=== PATIENT | male | born 1955 | race Caucasian/White ===

== ENCOUNTER 2016-07-14 22:09 | Observation (INO) | payer BC ==
[~2016-07-14] VITALS: Ht 182.9 cm; Wt 64.6 kg
[~2016-07-14 22:09] MED LIST: ACULAR0.5 % OS; CEPHALEXIN500 MG PO; CHILD ASA81 MG PO; DILTIAZEM90 M1 PO; GENTASOL0.3 % OS; LOSARTAN POT50 MG PO; PLAVIX75 MG PO; PRAVACHOL40 MG PO; ZITHROMAX Z-PAK1 TAB PO
--- NOTE | 2016-07-14 22:24 | NUR ---
PATIENT AMBULATORY TO ROOM 15. UNDRESSED INTO A GOWN. PLACED ON MONITOR. AWAITING MD MILLER.
--- NOTE | 2016-07-14 22:39 | NUR ---
PATIENT AMBULATORY TO BATHROOM IN ORDER TO COLLECT URINE SAMPLE.
--- NOTE | 2016-07-14 23:07 | NUR ---
PATIENT MEDICATED FOR ELEVATED BLOOD PRESSURE. WILL MONITOR FOR EFFECT.
[2016-07-14 23:08] LABS: HEMATOCRIT 41.3 % (39.0-50.0); HEMOGLOBIN 14.9 g/dl (14.0-18.0); IMMATURE GRANULOCYTES 0.5 % (0.0-1.0); MEAN CELL VOLUME 94.7 fL CALC (80.0-100.0); MEAN CORPUSCULAR HGB 34.2 pG CALC (26.0-32.0); MEAN CORPUSCULAR HGB CONC 36.1 g/L CALC (32.0-36.0); NEUT# 7.86 thou/uL (1.82-7.42); RED BLOOD COUNT 4.36 mill/uL (4.70-6.10); RED CELL DISTRI WIDTH 11.5 % (11.5-15.5)
[2016-07-14 23:10] LABS: URINE BILIRUBIN - DIPSTICK NEGATIVE (NEGATIVE); URINE BLOOD DIPSTICK NEGATIVE (NEGATIVE); URINE CLARITY CLEAR; URINE COLOR YELLOW; URINE GLUCOSE - DIPSTICK NEGATIVE (NEGATIVE); URINE KETONE NEGATIVE (NEGATIVE); URINE LEUK ESTERASE NEGATIVE (NEGATIVE); URINE NITRITE - DIPSTICK NEGATIVE (Negative); URINE PROTEIN - DIPSTICK NEGATIVE (NEG-TRACE); URINE SPECIFIC GRAVITY <=1.005; URINE UROBILINOGEN - DIPSTICK 0.2 E.U./dL (0.2)
[2016-07-14 23:15] LABS: PROTHROMBIN TIME 10.9 SECONDS (9.0-12.5)
[2016-07-14 23:16] LABS: ALBUMIN 5.2 g/dL (3.2-5.0); ALKALINE PHOSPHATASE 71 u/l (38-126); ANION GAP 16 (6-22 (CALC)); BILIRUBIN, TOTAL 1.1 mg/dL (0.0-1.4); BUN 9 mg/dL (8-23); BUN/CREATININE RATIO 13 (12-20 (CALC)); CALCIUM 9.7 mg/dL (8.4-10.2); CARBON DIOXIDE 25 mmol/l (22-30); CHLORIDE 81 mmol/l (95-108); CREATININE 0.7 mg/dL (0.7-1.3); GFR > 60 ML/MIN (>=60 (CALC)); GFR FOR AFR.AMER. > 60 ML/MIN (>=60 (CALC)); GLUCOSE 98 mg/dL (82-115); POTASSIUM 4.8 mmol/l (3.5-5.1); SGOT/AST 47 u/l (19-48); SGPT/ALT 30 u/l (11-66); TOTAL PROTEIN 8.8 g/dL (6.3-8.2)
[2016-07-14 23:27] LABS: MYOGLOBIN 64 ng/mL (0 - 121)
[2016-07-14 23:30] LABS: SODIUM 117 mmol/l (137-146)
--- NOTE | 2016-07-14 23:41 | NUR ---
PATIENT RETURNS TO DEPARTMENT. BP IMPROVED. PATIENT TO BE ADMITTED FOR [facility]. PATIENT AND SPOUSE AWARE OF PLAN OF CARE. GIVEN WARM BLANKET.
--- NOTE | 2016-07-14 23:55 | NUR ---
REPORT ATTEMPTED. NURSE TO CALL BACK.
[2016-07-15 00:07] LABS: BARBITURATES NEGATIVE (NEGATIVE); COCAINE NEGATIVE (NEGATIVE); METHADONE NEGATIVE (NEGATIVE); OXCYCODONE NEGATIVE (NEGATIVE); TETRAHYDROCANNABIONOL NEGATIVE (NEGATIVE); TRICYLIC ANTIDEPRESSANTS NEGATIVE (NEGATIVE)
--- NOTE | 2016-07-15 00:07 | NUR ---
REPORT GIVEN TO JOSE ANGEL. PATIENT READIED FOR TRANSPORT TO FLOOR.
[2016-07-15 00:15] VITALS: BP 143/77
--- NOTE | 2016-07-15 00:15 | NUR ---
PATIENT ARRIVED TO FLOOR IN STABLE CONDITION VIA WHEELCHAIR ACCOMPANIED BY JONNIE JONES. PATIENT SETTLED TO BED AND ORIENT TO ROOM, CALL SYSTEM, BED FUNCTION; BED IN LOW POSITION, AND CALL LIGHT IN REACH.
[2016-07-15 00:19] LABS: ETHYL ALCOHOL < 10 mg/dl (0-30)
[2016-07-15 03:30] VITALS: BP 90/58
--- NOTE | 2016-07-15 04:00 | NUR ---
PATIENT RESTING QUIETLY WITH EYES CLOSED AND APPEARS NOT TO BE IN ANY DISTRESS.
[2016-07-15 06:58] LABS: ANION GAP 11 (6-22 (CALC)); BUN 7 mg/dL (8-23); BUN/CREATININE RATIO 10 (12-20 (CALC)); CARBON DIOXIDE 25 mmol/l (22-30); CHLORIDE 90 mmol/l (95-108); CREATININE 0.7 mg/dL (0.7-1.3); GFR > 60 ML/MIN (>=60 (CALC)); GFR FOR AFR.AMER. > 60 ML/MIN (>=60 (CALC)); GLUCOSE 88 mg/dL (82-115); MAGNESIUM 1.8 mg/dL (1.6-2.3); POTASSIUM 3.7 mmol/l (3.5-5.1); SODIUM 122 mmol/l (137-146)
[2016-07-15 08:10] VITALS: BP 147/79
--- NOTE | 2016-07-15 08:10 | NUR ---
RECEIVED PT IN HIGH FOWLERS POSITION,ALERT,BREATH SOUNDS ARE CLEAR,BILATERALLY, NO C/O PAIN VOICED. IV SITE IS FREE FROM REDNESS OR EDEMA. TELE MONITOR IN PLACE. CONTINUE TO OSBERVE AND MONITOR.
[2016-07-15 11:48] VITALS: BP 117/69
--- NOTE | 2016-07-15 12:15 | NUR ---
PT HAS BEEN RELAXING IN BED WITH NO DISTRESS NOTED. IV SITE IS FREE FROM REDNESS OR EDEMA.
--- NOTE | 2016-07-15 15:40 | NUR ---
IV SITE DISCONTINEUD CATHETER INTACT. NO REDNESS OR EDEMA. DISCHARGE INSTRUCTIONS VERBALIZED UNDERSTANDING
--- NOTE | 2016-07-15 16:00 | NUR ---
PT TRANSPORTED TO VEHICLE WITH SPOUSE., NO DISTRESS NOTED. IV SITE WAS DISCONTINUED, TELE MONITOR DISCONTINUED.
== END 2016-07-15 16:00 | disposition home or self-care (01) | DRG 305 ==
LOC: ENPENDDIS → ED 22:09 → ED-I 23:33 → ED 23:42 → MS2 23:43
PROVIDERS: Emergency Medicine; ADMIT Internal Medicine; ATTEND Internal Medicine
DX: I16.0 Hypertensive urgency (principal); E87.1 Hypo-osmolality and hyponatremia; I10 Essential (primary) hypertension; F41.0 Panic disorder [episodic paroxysmal anxiety]; I25.10 Atherosclerotic heart disease of native coronary artery without angina pectoris; E78.5 Hyperlipidemia, unspecified; F10.10 Alcohol abuse, uncomplicated; F17.210 Nicotine dependence, cigarettes, uncomplicated; Z86.73 Personal history of transient ischemic attack (TIA), and cerebral infarction without residual deficits; Z95.5 Presence of coronary angioplasty implant and graft
CPT/HCPCS: G0378

== ENCOUNTER 2016-07-24 17:30 | Emergency (ER) | payer BC ==
[2016-07-24] MEDS ORDERED: MOTRIN400 MG PO (20:02)
== END 2016-07-24 17:45 | disposition left against medical advice (07) | DRG 951 ==
LOC: ED 17:30 → LWOBS 17:45
DX: Z91.19 Patient's noncompliance with other medical treatment and regimen (principal)

== ENCOUNTER 2016-07-24 18:28 | Emergency (ER) | payer OTHER, BC ==
[~2016-07-24] VITALS: Ht 182.9 cm; Wt 65.5 kg
[2016-07-24] MEDS ORDERED: MOTRIN400 MG PO (20:02)
[2016-07-24 20:10] VITALS: BP 181/98
== END 2016-07-24 20:10 | disposition home or self-care (01) | DRG 552 ==
LOC: ED 18:28
DX: S16.1XXA Strain of muscle, fascia and tendon at neck level, initial encounter (principal); I10 Essential (primary) hypertension; I25.10 Atherosclerotic heart disease of native coronary artery without angina pectoris; E78.5 Hyperlipidemia, unspecified; F17.210 Nicotine dependence, cigarettes, uncomplicated; V59.50XA Passenger in pick-up truck or van injured in collision with unspecified motor vehicles in traffic accident, initial encounter; Z95.5 Presence of coronary angioplasty implant and graft

== ENCOUNTER 2016-11-15 19:00 | Inpatient (IN) | payer BC ==
[~2016-11-15] VITALS: Ht 182.9 cm; Wt 65.0 kg
[~2016-11-15 19:00] MED LIST changes: +MOTRIN400 MG PO
--- NOTE | 2016-11-15 19:14 | NUR ---
PT. WITH C/O BY THAT HE HAS BEEN CONFUSED AND SLOW TO ANSWER ALL DAY STARTING THIS AM. PT. IS AWKE ALERT AND ORIENTED TO PERSON AND PLACE DISORIENTED TO TIME. SKIN WARM AND DRY TO TOUCH, COLOR PALE, RESP. EVEN AND UNALBORED. BILATERAL LUNG NDIAYE ARE CTA, NO EDEMA NOTED TO BLE.
[2016-11-15 19:56] LABS: URINE BILIRUBIN - DIPSTICK NEGATIVE (NEGATIVE); URINE BLOOD DIPSTICK NEGATIVE (NEGATIVE); URINE CLARITY CLEAR; URINE GLUCOSE - DIPSTICK 100 mg/dL (NEGATIVE); URINE KETONE TRACE mg/dL (NEGATIVE); URINE LEUK ESTERASE NEGATIVE (NEGATIVE); URINE NITRITE - DIPSTICK NEGATIVE (Negative); URINE PH 5.5 (4.5-8.0); URINE SPECIFIC GRAVITY >=1.030
[2016-11-15 19:57] LABS: HEMATOCRIT 35.3 % (39.0-50.0); HEMOGLOBIN 12.7 g/dl (14.0-18.0); IMMATURE GRANULOCYTES 0.6 % (0.0-1.0); MEAN CELL VOLUME 92.9 fL CALC (80.0-100.0); MEAN CORPUSCULAR HGB 33.4 pG CALC (26.0-32.0); NEUT# 9.79 thou/uL (1.82-7.42); RED BLOOD COUNT 3.8 mill/uL (4.70-6.10); RED CELL DISTRI WIDTH 11.8 % (11.5-15.5); URINE COLOR DK. YELLOW; URINE PROTEIN - DIPSTICK Trace mg/dL (NEG-TRACE)
[2016-11-15 19:58] LABS: ALKALINE PHOSPHATASE 93 u/l (38-126); ANION GAP 15 (6-22 (CALC)); BILIRUBIN, TOTAL 0.9 mg/dL (0.0-1.4); BUN 13 mg/dL (8-23); BUN/CREATININE RATIO 11 (12-20 (CALC)); CALCIUM 9.8 mg/dL (8.4-10.2); CARBON DIOXIDE 24 mmol/l (22-30); CHLORIDE 95 mmol/l (95-108); COCAINE NEGATIVE (NEGATIVE); CREATININE 1.2 mg/dL (0.7-1.3); ETHYL ALCOHOL 0 mg/dl (0-30); GFR > 60 ML/MIN (>=60 (CALC)); GFR FOR AFR.AMER. > 60 ML/MIN (>=60 (CALC)); GLUCOSE 115 mg/dL (82-115); METHADONE POSITIVE (NEGATIVE); POTASSIUM 4.1 mmol/l (3.5-5.1); SGOT/AST 51 u/l (19-48); SGPT/ALT 43 u/l (11-66); SODIUM 130 mmol/l (137-146); TETRAHYDROCANNABIONOL NEGATIVE (NEGATIVE); TOTAL PROTEIN 8.3 g/dL (6.3-8.2)
[2016-11-15 19:59] LABS: BARBITURATES NEGATIVE (NEGATIVE); OXCYCODONE NEGATIVE (NEGATIVE); TRICYLIC ANTIDEPRESSANTS POSITIVE (NEGATIVE)
--- NOTE | 2016-11-15 20:14 | NUR ---
SO AT BEDSIDE, NO C/O PAIN OR DISCOMFORT OFFRED, V/S STABLE. ASSESSMENT UNCHANGED.
--- NOTE | 2016-11-15 21:14 | NUR ---
PT. RESTING ON STRETCHER, NO ACUTE DISTRESS NOTED. NO C/O V/S STABLE.
--- NOTE | 2016-11-15 22:14 | NUR ---
RESTING ON STRETCHER, NO C/O SO AT SIDE. PT. IS ALERT AND ORIENTED X 3.
--- NOTE | 2016-11-16 00:07 | NUR ---
PT. BP 200/101 AWARE.
--- NOTE | 2016-11-16 00:44 | NUR ---
ivf and po catapress given as per md order.
--- NOTE | 2016-11-16 01:26 | NUR ---
bp now 165/88 md aware.
--- NOTE | 2016-11-16 01:30 | NUR ---
Admission Note Report Given to: JOSE ANGEL CRISTINA Transported by: Wheelchair X Stretcher Transported with: X Nurse Transporter X Patent IV [id number] X Composing Machine Operator
--- NOTE | 2016-11-16 01:30 | NUR ---
PATIENT ARRIVED TO THE FLOOR IN STABLE CONDITION ACCOMPANIED BY ED STAFF. PATIENT WEIGHED AND SETTLED TO BED. ORIENT PATIENT TO ROOM CALL SYSTEM. DENIES PAIN OR DISCOMFORT. IV NORMAL SALINE TO GRAVITY NOTED. STRATED INFUSION VIA PUMP AT 100CC/HR PER ORDER. BED IN LOW POSITION, CALL LIGHT INN REACH.
--- NOTE | 2016-11-16 01:31 | NUR ---
PT. TRANSFERD TO GA VIA STRETCHER, NO C/O.
[2016-11-16 01:35] VITALS: BP 162/86
[2016-11-16 03:31] LABS: HEMATOCRIT 35.4 % (39.0-50.0); HEMOGLOBIN 12.4 g/dl (14.0-18.0); MEAN CELL VOLUME 94.9 fL CALC (80.0-100.0); MEAN CORPUSCULAR HGB 33.2 pG CALC (26.0-32.0); RED BLOOD COUNT 3.73 mill/uL (4.70-6.10); RED CELL DISTRI WIDTH 11.9 % (11.5-15.5)
[2016-11-16 03:48] LABS: ANION GAP 14 (6-22 (CALC)); BUN 14 mg/dL (8-23); BUN/CREATININE RATIO 15 (12-20 (CALC)); CALCIUM 9.6 mg/dL (8.4-10.2); CARBON DIOXIDE 28 mmol/l (22-30); CHLORIDE 95 mmol/l (95-108); CREATININE 0.9 mg/dL (0.7-1.3); GFR > 60 ML/MIN (>=60 (CALC)); GFR FOR AFR.AMER. > 60 ML/MIN (>=60 (CALC)); GLUCOSE 101 mg/dL (82-115); POTASSIUM 4.6 mmol/l (3.5-5.1); SODIUM 133 mmol/l (137-146)
[2016-11-16 04:05] VITALS: BP 142/82
--- NOTE | 2016-11-16 07:00 | NUR ---
SHIFT CHANGE REPORT FROM IBAN WALTER SLEEPING BUT AROUSES TO VERBAL STIMULI, ORIENTED TO PERSON ONLY, DENIES PAIN AT THIS ITME, IVF INFUSING, CALL FLOYD IN REACH.
--- NOTE | 2016-11-16 07:00 | NUR ---
SHIFT CHANGE REPORT FROM IBAN WALTER AWAKE ALERT AND ORIENTED, NO C/O PAIN, IVF INFUSING, TELE MONITOR IN PLACE, CALL FLOYD IN REACH.
[2016-11-16 11:12] VITALS: BP 150/76
--- NOTE | 2016-11-16 13:58 | NUR ---
CONFUSED AT THIS TIME, TALKING ABOUT A STORM AND TAKING KIDS FISHING, KEEPE REPEATING "NO NO, I'M MESSED UP, I WANT THE PEOPLE WHO HELP KIDS, I LIKE PEOPLE WHO HELP THE KIDS BY TAKING THEM OUT FISHING. I LIKE THE PEOPLE WHO HELP THE PLANT OPERATOR/SHIFT SUPERVISOR GOING DOWN THE ROAD" HE ALSO TALKS ABOUT PEOPLE WHO HELP PEOPLE WITH CANCER AND WITH VICTIMS OF HURRICANE. ABLE TO STATE DATE ADN TIME AND ORIENTED TO PLACE. FULL ROM TO ALL EXTREMETIES. THIS REPORT SEEM TO COME IN EPISODES PT JUST COT FULLY ORIENTED, WILL CONTINUE TO MONITOR, BED ALARM ON, CALL FLOYD IN REACH.
--- NOTE | 2016-11-16 14:34 | NUR ---
FRIEND VISITING AT [facility] TIME, PT HAVING APPROPRIATE CONVERSATION, REMINDED OF CALL FLOYD TO USE FOR ASSIST WITH OOB.
[2016-11-16 15:09] VITALS: BP 153/87
--- NOTE | 2016-11-16 16:18 | NUR ---
RESTING IN BED AT THIS TIME, ALL NEEDS ADDRESSED, CALL FLOYD IN REACH.
[2016-11-16 20:12] VITALS: BP 128/74
--- NOTE | 2016-11-16 22:30 | NUR ---
PT RESTING IN SEMI FOWLERS POSITION WATCHING TV;PT DENIES ANY PAIN OR DISCOMFORTS;RESPIRATIONS EVEN AND UNLABORED ON RA;#20G TO LEFT FOREARM INFUSING NS @ 100ML/HR WELL;TELE MONITOR IN PLACE;ASSESSMENT COMPLETED;PT DISCUSSED ALCOHOL USE WITH WRITTER STATING "I HAD A FEW DRINKS DURING THIS HURRICANE";SKIN INTACT;PT A&O X 3 AT THIS TIME,WITH SLIGHT MOMENTS OF CONFUSION;SAFETY PRECAUTIONS REINFORCED;BED ALARM IN PLACE FOR PT SAFETY;PT DENIES ANY OTHER NEEDS AT THIS TIME;PT EDUCATED TO CALL FOR ASSISTANCE IF NEEDED;BED IN LOWEST POSITION;CALL LIGHT IN REACH;WILL CONTINUE TO MONITOR
--- NOTE | 2016-11-16 23:00 | NUR ---
PT RANG CALL LIGHT;YASH RILEY ENTERED ROOM;PT DISCUSSED HOW HE WANTED TO GET READY FOR BED WITH ENERGY ASSISTANT;YASH RILEY THEN CALLED NURSE FOR ASSISTANCE;UPON ENTERING THE ROOM PT IS VISIBLY HAVING AN ACTIVE SEIZURE;PT REPOSITIONED ON HIS SIDE BY ERICA RN;CLINICAL SUPPORT CALLED AT THIS TIME; NOTIFED AT 2310;SEIZURE PRECAUTIONS PUT INTO PLACE AND POTENTIAL TRANSFER IN THE MORNING TO [facility] AFTER EVALUATION BY ;ATIVAN PRN ORDERED;SEIZURE ACTIVITY LASTED APPROX 2 MINUTES;ORAL CARE PROVIDED;WILL CONTINUE TO MONITOR
--- NOTE | 2016-11-17 | NUR ---
PT APPEARS TO BE SLEEPING ON RIGHT SIDE AT THIS TIME;NO S/S OF DISTRESS NOTED;RESPIRATIONS REMAIN EVEN AND UNLABORED;WILL CONTINUE TO MONITOR
[2016-11-17 01:00] VITALS: BP 125/60
--- NOTE | 2016-11-17 01:39 | NUR ---
PT TRANSFERRED VIA STRETCHER IN STABLE CONDITION TO CT ACCOMPANIED BY YASH CHOU
--- NOTE | 2016-11-17 01:50 | NUR ---
PT TRANSFERRED BACK TO FLOOR IN STABLE CONDITION;WILL CONTINUE TO MONITOR
--- NOTE | 2016-11-17 03:30 | NUR ---
PT APPEARS TO BE RESTING IN SUPINE POSITION;PT STATES "I HAD A SEIZURE YEARS AGO AND I THINK I HAD ONE A MONTH AGO" WHEN WRITTER BEGAN TO DISCUSS THE PT HAVING A HX OF SEIZURES PT STATES "I DONT THINK I HAVE EVER HAD ONE";PT A&O TO PERSON,PLACE AND TIME;PT DENIES ANY NEEDS JUST WISHES TO GO TO BED;SEIZURE PRECAUTIONS IN PLACE;CALL LIGHT IN REACH;WILL CONTINUE TO MONITOR
[2016-11-17 04:23] VITALS: BP 146/74
--- NOTE | 2016-11-17 05:20 | NUR ---
PT RESTING IN SUPINE POSITION;PT VOIDED 400CC OF CLEAR/YELLOW URINE;IV FLUIDS INFUSING WELL TO LFA;BED ALARM ON FOR PT SAFETY;PT DENIES ANY PAIN OR DISCOMFORTS;CALL LIGHT IN REACH;WILL CONTINUE TO MONITOR
[2016-11-17 05:49] LABS: HEMATOCRIT 32.1 % (39.0-50.0); HEMOGLOBIN 11.5 g/dl (14.0-18.0); IMMATURE GRANULOCYTES 0.5 % (0.0-1.0); MEAN CELL VOLUME 92.8 fL CALC (80.0-100.0); MEAN CORPUSCULAR HGB 33.2 pG CALC (26.0-32.0); MEAN CORPUSCULAR HGB CONC 35.8 g/L CALC (32.0-36.0); NEUT# 7.92 thou/uL (1.82-7.42); RED BLOOD COUNT 3.46 mill/uL (4.70-6.10); RED CELL DISTRI WIDTH 11.6 % (11.5-15.5)
[2016-11-17 05:58] LABS: ANION GAP 12 (6-22 (CALC)); BUN 11 mg/dL (8-23); BUN/CREATININE RATIO 15 (12-20 (CALC)); CALCIUM 8.7 mg/dL (8.4-10.2); CARBON DIOXIDE 26 mmol/l (22-30); CHLORIDE 92 mmol/l (95-108); CREATININE 0.7 mg/dL (0.7-1.3); GFR > 60 ML/MIN (>=60 (CALC)); GFR FOR AFR.AMER. > 60 ML/MIN (>=60 (CALC)); GLUCOSE 91 mg/dL (82-115); MAGNESIUM 1.8 mg/dL (1.6-2.3); POTASSIUM 3.7 mmol/l (3.5-5.1); SODIUM 126 mmol/l (137-146)
--- NOTE | 2016-11-17 07:00 | NUR ---
SHIFT CHANGE REPORT FROM IBAN MCDONALD AWAKE ALERT AND ORIENTED TALKING ON PHONE, NO C/O DISCOMFORT AT THIS TIME, IVF INFUSING, TELE MONITOR IN PLACE, CALL FLOYD IN REACH.
[2016-11-17 09:03] VITALS: BP 133/80
[2016-11-17 11:33] VITALS: BP 148/75
[2016-11-17] MEDS ORDERED: THIAMINE HCL100 MG PO (12:39)
[2016-11-17] MEDS ORDERED: LIBRIUM25 M1 PO (12:40)
--- NOTE | 2016-11-17 14:42 | NUR ---
D/C ORDERS WRITTEN, REVIEWED WITH PT WHO STATED HE WILL NOT SIGN UNTIL SIGNIFICANT OTHER IS HERE. SHE ARRIVED AND REQUESTED TO SPEAK WITH SENIOR TECHNICAL PROJECT MANAGER WHO ADDRESSED CONCERNS, ORDERED TO GIVE LIBRIUM AND HOLD PT FOR MONITORING TILL AFTER SUPPER. NEW ORDERS DISCUSSED WITH PT AND SIGNIFICANT OTHER, WILL CONTINUE TO MONITOR.
[2016-11-17 14:52] VITALS: BP 158/80
--- NOTE | 2016-11-17 16:20 | NUR ---
Discharge instructions given. Patient verbalizes understanding of same. Discharged in good condition via Wheelchair to Home with significant other. All belongings sent with pt.
== END 2016-11-17 16:39 | disposition home or self-care (01) | DRG 897 ==
LOC: ED 19:00 → ED-I 22:35 → ED 22:58 → MS2 22:59
PROVIDERS: Emergency Medicine; Nurse Practitioner Family; ADMIT Internal Medicine; ATTEND Internal Medicine
DX: F10.239 Alcohol dependence with withdrawal, unspecified (principal); G40.89 Other seizures; E87.1 Hypo-osmolality and hyponatremia; I10 Essential (primary) hypertension; I16.0 Hypertensive urgency; I25.10 Atherosclerotic heart disease of native coronary artery without angina pectoris; E78.5 Hyperlipidemia, unspecified; F17.210 Nicotine dependence, cigarettes, uncomplicated; F41.9 Anxiety disorder, unspecified; J44.9 Chronic obstructive pulmonary disease, unspecified; Z86.73 Personal history of transient ischemic attack (TIA), and cerebral infarction without residual deficits; Z95.5 Presence of coronary angioplasty implant and graft
CPT/HCPCS: J1650; J1953; J2060

== ENCOUNTER 2016-12-28 10:53 | Emergency (ER) | payer BC ==
[~2016-12-28] VITALS: Ht 182.9 cm; Wt 66.2 kg
[~2016-12-28 10:53] MED LIST changes: +LIBRIUM25 M1 PO; +THIAMINE HCL100 MG PO
[2016-12-28 11:29] LABS: HEMATOCRIT 39.6 % (39.0-50.0); HEMOGLOBIN 13.7 g/dl (14.0-18.0); IMMATURE GRANULOCYTES 0.5 % (0.0-1.0); MEAN CELL VOLUME 96.1 fL CALC (80.0-100.0); MEAN CORPUSCULAR HGB 33.3 pG CALC (26.0-32.0); MEAN CORPUSCULAR HGB CONC 34.6 g/L CALC (32.0-36.0); NEUT# 9.5 thou/uL (1.82-7.42); RED BLOOD COUNT 4.12 mill/uL (4.70-6.10); RED CELL DISTRI WIDTH 12.2 % (11.5-15.5)
[2016-12-28 11:40] LABS: ALBUMIN 4.7 g/dL (3.2-5.0); ALKALINE PHOSPHATASE 93 u/l (38-126); ANION GAP 14 (6-22 (CALC)); BILIRUBIN, TOTAL 0.7 mg/dL (0.0-1.4); BUN 10 mg/dL (8-23); BUN/CREATININE RATIO 13 (12-20 (CALC)); CALCIUM 9.6 mg/dL (8.4-10.2); CARBON DIOXIDE 27 mmol/l (22-30); CHLORIDE 94 mmol/l (95-108); CREATININE 0.8 mg/dL (0.7-1.3); GFR > 60 ML/MIN (>=60 (CALC)); GFR FOR AFR.AMER. > 60 ML/MIN (>=60 (CALC)); GLUCOSE 82 mg/dL (82-115); POTASSIUM 4.4 mmol/l (3.5-5.1); SGOT/AST 26 u/l (19-48); SGPT/ALT 31 u/l (11-66); SODIUM 131 mmol/l (137-146); TOTAL PROTEIN 7.6 g/dL (6.3-8.2)
[2016-12-28 11:50] LABS: ETHYL ALCOHOL 0 mg/dl (0-30)
[2016-12-28 13:33] LABS: URINE BILIRUBIN - DIPSTICK NEGATIVE (NEGATIVE); URINE BLOOD DIPSTICK NEGATIVE (NEGATIVE); URINE CLARITY CLEAR; URINE COLOR YELLOW; URINE GLUCOSE - DIPSTICK NEGATIVE (NEGATIVE); URINE KETONE NEGATIVE (NEGATIVE); URINE LEUK ESTERASE NEGATIVE (NEGATIVE); URINE NITRITE - DIPSTICK NEGATIVE (Negative); URINE PH 6.5 (4.5-8.0); URINE PROTEIN - DIPSTICK NEGATIVE (NEG-TRACE); URINE UROBILINOGEN - DIPSTICK 0.2 E.U./dL (0.2)
[2016-12-28 13:48] LABS: BARBITURATES NEGATIVE (NEGATIVE); COCAINE NEGATIVE (NEGATIVE); METHADONE NEGATIVE (NEGATIVE); OXCYCODONE NEGATIVE (NEGATIVE); TETRAHYDROCANNABIONOL NEGATIVE (NEGATIVE); TRICYLIC ANTIDEPRESSANTS NEGATIVE (NEGATIVE)
[2016-12-28 16:45] VITALS: BP 179/78
== END 2016-12-28 16:45 | DRG 880 ==
LOC: ED 10:53
PROVIDERS: Emergency Medicine
DX: R45.851 Suicidal ideations (principal); I10 Essential (primary) hypertension; E78.5 Hyperlipidemia, unspecified; I25.10 Atherosclerotic heart disease of native coronary artery without angina pectoris; J45.909 Unspecified asthma, uncomplicated; F17.210 Nicotine dependence, cigarettes, uncomplicated; Z95.5 Presence of coronary angioplasty implant and graft

== ENCOUNTER 2017-01-05 09:46 | Emergency (ER) | payer BC | END 2017-01-05 10:01 | disposition E | DRG 298 | LOC: ED 09:46 | DX: I46.9 Cardiac arrest, cause unspecified (principal); S01.83XA Puncture wound without foreign body of other part of head, initial encounter; Y92.003 Bedroom of unspecified non-institutional (private) residence as the place of occurrence of the external cause ==